=== PATIENT | female | born 1985 | race Caucasian/White ===

== ENCOUNTER 2016-11-25 06:21 | Day surgery (SDC) | payer BC ==
[~2016-11-25 06:21] MED LIST: LIDOCAINE W/ SODIUM BICARB 0.5 ML SYR ONE; Lactated Ringers 2,000 ML PRIMARY IV ONE; Sodium Chloride 0.9% 100 ML IV ONE
[2016-11-25 06:38] LABS: BILIRUBIN,URINE NEGATIVE (NEG); CLARITY,URINE CLEAR (CLEAR); COLOR,URINE YELLOW; GLUCOSE, URINE (UA) NEGATIVE (NEG); NITRATE,URINE NEGATIVE (NEG); OCCULT BLOOD,URINE Trace-intact (NEG); PH,URINE 6.5 (5.0-8.5); PROTEIN,URINE NEGATIVE (NEG); URINE SPECIFIC GRAVITY - MAN 1.015; UROBILINOGEN,URINE 0.2 EU/dL (0.2)
[2016-11-25 06:39] LABS: URINE SAMPLE TYPE CLEAN CATCH URINE
[2016-11-25 06:41] LABS: BACTERIA,URINE RARE; SQUAMOUS EPITHELIAL CELL,UR RARE; WBC,URINE 0-1
[2016-11-25] MEDS ORDERED: LIDOCAINE MPF 2% - 5 ML (20 MG/1 ML) ONE (06:54)
[2016-11-25] MEDS ORDERED: MIDAZOLAM 5 MG/1 ML ONE (06:55)
[2016-11-25] MEDS ORDERED: fentaNYL Inj 250 MCG/5 ML VIAL ONE (06:55)
[2016-11-25] MEDS ORDERED: KETAMINE 100 MG/1 ML - 5 ML ONE (06:55)
[2016-11-25] MEDS ORDERED: ROCURONIUM 10 MG/1 ML - 5 ML VIAL IVP ONE (06:56)
[2016-11-25] MEDS ORDERED: SUFENTANIL 50 MCG/1 ML ONE (06:58)
[2016-11-25] MEDS ORDERED: Sodium Chloride 0.9% vial 20 ML ONE (06:59)
[2016-11-25] MEDS ORDERED: ONDANSETRON 4 MG/2 ML VIAL ONE ×2 (07:13→12:24)
[2016-11-25] MEDS ORDERED: SCOPOLAMINE HYDROBROMIDE 1.5 MG - 1 EACH PATCH TRANSDERM ONE (07:13)
[2016-11-25] MEDS ORDERED: DEXAMETHASONE SOD PHOSPHATE 4 MG/1 ML VIAL ONE (07:13)
[2016-11-25 07:20] LABS: HEMOGLOBIN 13.5 g/dL (12.0-16.0)
[2016-11-25 07:21] LABS: HEMATOCRIT 40.5 % (37.0-47.0)
[2016-11-25] MEDS ORDERED: Acetaminophen 1000mg Inj 100 ML IV ONE (08:18)
[2016-11-25] MEDS ORDERED: BUPIVACAINE 0.25% W/ EPI - 10 ML VIAL ONE (08:38)
[2016-11-25] MEDS ORDERED: LIDOCAINE HCL 2 % 10 ML JELLY URO-JECT TOPICAL ONE (08:38)
[2016-11-25] MEDS ORDERED: Opium-Belladonna 30-16.2mg 1 EACH SUPP.RECT RECTAL ONE (08:39)
[2016-11-25] MEDS ORDERED: fentaNYL Inj 100 MCG/2 ML VIAL IVP PRN (08:43)
[2016-11-25] MEDS ORDERED: Prochlorperazine Edisylate Inj 10mg/2ml vial IVP PRN (08:43)
[2016-11-25] MEDS ORDERED: NORMAL SALINE 10 ML SYRINGE FLUSH IVP PRN ×2 (08:43→09:15)
[2016-11-25] MEDS ORDERED: Lactated Ringers 1,000 ML PRIMARY IV SCH (08:45)
[2016-11-25] MEDS ORDERED: SUGAMMADEX SODIUM 200 MG/2 ML VIAL IV ONE (08:57)
[2016-11-25] MEDS ORDERED: KETOROLAC 30 MG/1 ML VIAL ONE (08:58)
[2016-11-25] MEDS ORDERED: IBUPROFEN 800 MG TABLET PO PRN (09:15)
[2016-11-25] MEDS ORDERED: KETOROLAC 30 MG/1 ML VIAL IVP PRN (09:15)
[2016-11-25] MEDS ORDERED: Ondansetron ODT Tab 8 MG TAB PO PRN (09:15)
[2016-11-25] MEDS ORDERED: oxyCODONE/APAP 7.5/325 Tab 1 TAB TAB PO PRN (09:15)
--- NOTE | 2016-11-25 09:20 | OB.OP.NOTE ---
Operative Report Surgeon: Catrina Library Customer Service Clerk: Tanner Rehman MD Anesthesia Type: General Anesthesia Provider: Ty Rock CRNA Surgery Date: 11/25/16 Preoperative Diagnosis: MMR/Dysmenorrhea/CPP Postoperative Diagnosis: Same Procedure: da [place] Hysterectomy/RSO/Left Salpingectomy/Cystoscopy Estimated Blood Loss (mL): 150 Fluids: 2100 ml Complications: None Findings at Surgery: Normal size, retroverted uterus. Normal ovaries. Tubes with clips in place. No visible evidence of bowel, bladder, or ureter injury. At cystoscopy, the ureters were both seen to eject urine indicating patency and function. The bladder was intact. Indications for the Procedure: MMR/Dysmenorrhea/CPP, right sided. Description of Procedure: See dictated operative report. Plan: Routine post op care and discharge to home.
[2016-11-25] MEDS ORDERED: HYDROmorphone 2 MG/1 ML ONE (09:41)
[2016-11-25] MEDS: HYDROmorphone 2 MG/1 ML IVP PRN ×3 (09:41→09:52)
[2016-11-25 10:03] VITALS: RESP 14
[2016-11-25] MEDS: oxyCODONE IR Tab 5 MG TAB PO PRN ×2 (10:20→12:20)
[2016-11-25] MEDS ORDERED: oxyCODONE IR Tab 5 MG TAB PO ONE ×2 (10:21→12:16)
[2016-11-25 13:26] VITALS: TEMP 97.9
[2016-11-25] MEDS ORDERED: DOCUSATE 100 MG CAPSULE PO SCH (21:00)
== END 2016-11-25 13:08 | disposition home or self-care (01) ==
LOC: SDSC 06:21
PROVIDERS: ATTEND Obstetrics & Gynecology
DX: N92.1 Excessive and frequent menstruation with irregular cycle (principal); N94.6 Dysmenorrhea, unspecified; R10.2 Pelvic and perineal pain
CPT/HCPCS: 52000; 58552; 81001; 84703; 85014; 85018; A4216; J0131; J0694; J1885; J2704; J3010; J1100; J1170; J2001; J2250; J2405; J3490; J7050; J7120